=== PATIENT | male | born 1960 | race Caucasian/White ===

== ENCOUNTER → 2023-03-04 00:29 | Outpatient (REF) | payer OTHER, SELFPAY | LOC: DHSLP 00:29 | PROVIDERS: ATTENDING PHYSICIAN Family Medicine | DX: G47.19 Other hypersomnia (principal); R06.83 Snoring | CPT/HCPCS: 95800 ==

== ENCOUNTER 2023-03-17 20:04 | Emergency (ER) | payer OTHER, SELFPAY ==
[2023-03-17 20:08] VITALS: BP 158/97; BMI 42.6
[2023-03-17 20:33] VITALS: BP 141/74
[2023-03-17 20:44] LABS: % Basophils 0.7 % (0-2); % Eosinophils 2.2 % (0-6); % Immature Granulocytes 0.3 % (0-0.5); % Lymphocytes 23.8 % (20.5-51.1); % Monocytes 13.4 % (1.7-9.3); % Neutrophils 59.6 % (42.2-75.2); Absolute Basophils 0.1 10^3/uL (0-0.2); Absolute Eosinophils 0.2 10^3/uL (0-0.7); Absolute Lymphocytes 2.6 10^3/uL (1.2-3.4); Absolute Monocytes 1.5 10^3/uL (0.1-0.6); Absolute Neutrophils 6.6 10^3/uL (1.4-6.5); Hemoglobin 15.3 g/dL (13.0-18.0); Mean Corp Hgb Conc. 34.8 g/dL (33.0-37.0); Mean Corpuscular Hgb 29.3 pg (27.0-31.0); Mean Corpuscular Volume 84.3 fL (80.0-94.0); Mean Platelet Volume 9.3 fL (7.4-10.4); Nucleated Red Blood Cells % 0 % (-); Platelet Count 248 10^3/uL (130-400); Red Blood Cell Count 5.22 10^6/uL (4.70-6.10); Red Cell Dist. Width 13.3 % (11.5-14.5); White Blood Cell Count 11.1 10^3/uL (4.8-10.8)
[2023-03-17 21:00] VITALS: BP 136/74
[2023-03-17 21:14] LABS: ALT (SGPT) 24 U/L (0-50); AST (SGOT) 27 U/L (17-59); Albumin 4.2 g/dl (3.5-5.0); Alkaline Phosphatase 84 U/L (38-126); Blood Urea Nitrogen 16 mg/dl (9-20); Calcium 9.4 mg/dl (8.4-10.2); Carbon Dioxide 26 mmol/L (22-30); Chloride 102 mmol/L (98-107); Estimated Creatinine Clearance 114 ml/min; Glucose 91 mg/dl (70-99); Potassium 4.4 mmol/L (3.5-5.1); Sodium 134 mmol/L (135-145); Total Bilirubin 0.7 mg/dl (0.2-1.3); Total Protein 7.4 g/dl (6.3-8.2); eGFR > 60.00
[2023-03-17 21:17] LABS: Troponin I < 0.012 ng/ml
[2023-03-17 22:00] VITALS: BP 123/74
[2023-03-17] MEDS: ELIQUIS 5 MG PO (22:44)
--- NOTE | 2023-03-17 23:05 | ED.GENMED ---
History of Present Illness
General
Chief Complaint: Cardiac Symptoms
Source: patient
Exam Limitations: none
Time Seen by Provider: 03/17/23 20:48
Nursing documentation reviewed up to this point in time: agreed with
Travel History
Have you had any contact with someone who has COVID-19?: No
Do you have any symptoms of coronavirus? Fever > 100 degrees, chills, cough, shortness of breath, sore throat, loss of taste or smell, muscle aches, or headache?: No
History of Present Illness
History of Present Illness:
The patient is a 62-year-old man with a past medical history of coronary artery disease, hypertension and hyperlipidemia who reports sudden onset of palpitations around 7 PM this evening. Patient reports that by the time he got back to an emergency
department room, the symptoms were gone. On arrival patient had an EKG that showed A-fib with a heart rate in the 140s. When I arrived in patient's room, his heart rate was in the 70s and normal sinus rhythm. Patient reports he has never had a
known history of A-fib. He denies chest pain or shortness of breath.
Past History
Past History
ED Past Medical History: CAD, HTN and Hypercholesterolemia
ED Past Surgical History: Cardiac and Tonsilectomy
Social History
Tobacco: Non-smoker
Alcohol: Occasional
Drug: None
Personal:
Living: with family
Employment: Employed
Family History
Family History: CAD
Review of Systems
Review of Systems
Allergies reviewed?: Yes
All Other Systems: ROS reviewed and negative except as documented in HPI and ROS
Constitutional: Reports no symptoms
EENT: Reports no symptoms
Respiratory: Reports no symptoms
Cardiac: Reports palpitations
ABD/GI: Reports no symptoms
: Reports no symptoms
Musculoskeletal: Reports no symptoms
Skin: Reports no symptoms
Neurological: Reports no symptoms
Endocrine: Reports no symptoms
Hematologic/Lymphatic: Reports no symptoms
Psychiatric: Reports no symptoms
Phy Exam
Physical Exam
Physical Exam:
Physical Exam
General: no apparent distress, not acutely ill
Neck: supple. no meningeal signs. normal psoterior pharynx
Heart: s1/s2 regular rate and rhythm, no murmur. equal radial pulses.
Lungs: no acute respiratory distress. clear bilaterally
Abdomen: normal bowel sounds. not tender. no CVAT
Neuro: alert and oriented. no focal neurological deficits
Skin: no rash
Psychiatric: well kept. interactive and cooperative
Extremities: no edema. no calf tenderness. negative homans. good distal pulses
Course
Orders/Labs/Results
Orders:
Orders
03/17/23 20:07
Electrocardiogram (*1) Urgent
Reason for Study: Chest Pain
EKG- Treatment ONCE
03/17/23 20:35
Complete Blood Count/With Diff Urgent
Comprehensive Metabolic Panel Urgent
Troponin I Urgent
03/17/23 22:45
Apixaban [Eliquis] 5 mg PO BID
Abnormal Lab Results
03/17/23
20:35
WBC 11.1 H 10^3/uL
(4.8-10.8)
Absolute Neuts (auto) 6.6 H 10^3/uL
(1.4-6.5)
Absolute Monos (auto) 1.5 H 10^3/uL
(0.1-0.6)
Monocytes % 13.4 H %
(1.7-9.3)
Sodium 134 L mmol/L
(135-145)
03/17/23 20:35
03/17/23 20:35
Vital Signs
Initial and Last Documented VS:
Initial Vital Signs
Temp Pulse Resp BP Pulse Ox
98.9 F 140 20 158/97 99
03/17/23 20:08 03/17/23 20:08 03/17/23 20:08 03/17/23 20:08 03/17/23 20:08
Last Documented Vital Signs
Temp Pulse Resp BP Pulse Ox
98.9 F 73 19 123/74 96
03/17/23 20:08 03/17/23 22:15 03/17/23 22:15 03/17/23 22:00 03/17/23 22:15
MDM/Problems Addressed
Differential Diagnosis Includes:
Sinus tachycardia, A-fib, a flutter
MDM/Problems Addressed:
Patient presents with acute palpitations
Chronic conditions affecting care: HTN and CAD
Acute Exacerbation and/or Progression of Chronic Illness:
Patient is acutely hypertensive, likely due to tachycardia and anxiety
Acute Exacerbation and/or Progression of Chronic Illness: HTN
*Pulse Oximetry
Patient hypoxic: no
*EKG
Interpreted by ED Provider?: Yes
Interpretation: abnormal
Comparison EKG: changes noted
Rate: tachycardiac
Rhythm: a-fib
[place]: normal axis
Interval: normal interval
QRS Pattern: normal QRS
Ischemia: non-specific ST changes
*User Support Specialist Interpretation
Rate: normal
Interpretation: normal
Rhythm: sinus
*Critical Care Note
Total Time (30-74mins, 75-104mins- exclusive of procedures): Not Applicable
Data Reviewed
Source: patient and spouse
Patient Management
Social determinants of health affecting care: Living situation and Strong social support
Discussion with other providers: Other (Dr. Giarldo)
Escalation/DeEscalation of care consider admission/obs:
Patient has been in her normal sinus rhythm for hours and converted on his own while in the ED. There is no sign of CHF. Patient appears very well and comfortable. Case discussed with cardiology who encouraged that patient be started on Eliquis
and follow-up as an outpatient with cardiology.
ED Attending Note
-
Portions of this chart may have been created with voice recognition software.� Occasional wrong word or��sound alike� substitutions may have occurred due to the inherent limitations of voice recognition software.
Discharge Plan
Departure
Patient Disposition: Home (Routine Discharge)
Date of Disposition: 03/17/23
Time of Disposition: 22:40
Patient with high blood pressure during this ER visit?: Yes
Condition: Good
Covid-19: Not Applicable
Discharge Problem:
New onset a-fib
Instructions: Bleeding Precautions, Going Home on Blood Thinners , Atrial Fibrillation and Atrial Flutter ED
Prescriptions:
New
Eliquis 5 mg tablet
5 mg PO BID Qty: 60 0RF
No Action
atorvastatin 80 MG tablet
80 mg PO QPM Qty: 30 11RF
aspirin 81 MG tablet,chewable
81 mg PO DAILY Qty: 30 0RF
lisinopril 2.5 MG tablet
2.5 mg PO DAILY Qty: 30 6RF
ticagrelor [Brilinta] 90 MG tablet
90 mg PO BID Qty: 60 11RF
furosemide 40 MG tablet
40 mg PO DAILY Qty: 5 0RF
Rx Instructions:
take one tablet once daily x 5 days then stop
acetaminophen 325 MG tablet
650 mg PO Q4HPRN PRN (Reason: mild pain, fever, headache) 0RF
oxycodone 5 MG tablet
5 mg PO Q6HPRN PRN (Reason: moderate - severe pain) Qty: 40 0RF
potassium chloride 10 MEQ tablet,ER particles/crystals
10 meq PO DAILY Qty: 5 0RF
Rx Instructions:
take one tablet once daily x 5 days then stop
metoprolol succinate 25 MG tablet extended release 24 hr
50 mg PO BID Qty: 60 6RF
Rx Instructions:
resume but increase to 50 mg twice daily
Referrals:
Cuate Giraldo MD [Active] - (Call tomorrow to schedule an appointment within 1 week)
Emeka Carrillo MD [Family Provider] -
Interventions
Interventions:
*Risk Screen - Suicide Last Done: 03/17/23 20:08
*Neglect/Abuse Screening Last Done: 03/17/23 20:08
ED- Fall Risk Assessment Last Done: 03/17/23 20:36
*ED COVID-19 Vaccine History Last Done: 03/17/23 20:08
*Nursing Disposition Last Done: 03/17/23 23:11
ED- Pulmonary Assessment Last Done: 03/17/23 20:36
ED- Cardiac Assessment Last Done: 03/17/23 20:36
Discharge Date and Time
Discharge Date/Time: 03/17/23 23:11
== END 2023-03-17 23:11 | disposition home or self-care (01) ==
LOC: EMR 20:04
PROVIDERS: Emergency Medicine; EMERGENCY PHYSICIAN Emergency Medicine; FAMILY PHYSICIAN Family Medicine
DX: I48.91 Unspecified atrial fibrillation (principal); I10 Essential (primary) hypertension; I25.10 Atherosclerotic heart disease of native coronary artery without angina pectoris; E78.00 Pure hypercholesterolemia, unspecified
CPT/HCPCS: 99284; 80053; 84484; 85025; 93005